=== PATIENT | female | born 1950 | race Caucasian/White ===

== ENCOUNTER 2019-12-03 21:31 | Inpatient (IN) | payer MEDICARE, OTHER ==
[~2019-12-03] VITALS: Ht 162.6 cm; Wt 139.3 kg
[~2019-12-03 21:31] MED LIST: ALTACE10 M1 PO; ENBREL 25 MG KI25 M1; LEVOXYL75 MCG PO; LIPITOR40 MG PO; LO-DOSE ASPIRIN81 M1 PO; METHOTREXATE 22.5 M1 PO; NIGHTTIME SLEEP50 MG PO; NITROSTAT0.4 MG SUBLING; PROZAC20 MG PO; TOPROL XL25 MG PO
[2019-12-03 22:23] VITALS: BP 197/87
[2019-12-03] MEDS ORDERED: TRAZODONE 150150 M1 PO (22:25)
[2019-12-03] MEDS ORDERED: LEVO-T100 MCG PO (22:26)
[2019-12-04 00:03] LABS: ABSOLUTE BASOPHILS 0.1 thou/uL (0.0-0.2); ABSOLUTE EOSINOPHILS 0.1 thou/uL (0.0-0.7); ABSOLUTE LYMPHOCYTES 1.2 thou/uL (0.8-5.3); ABSOLUTE MONOCYTES 0.5 thou/uL (0.0-1.2); EOSINOPHILS 2.7 %; HEMATOCRIT 35.8 % (37.0-47.0); HEMOGLOBIN 11.2 gm/dL (12.0-15.0); LYMPHOCYTES 25.2 %; MCHC 31.3 g/dL (28.0-37.0); MCV 83.2 fL (80.0-100.0); MONOCYTES 10.4 %; MPV 7.9 fl. (7.2-11.1); NUCLEATED RBCS 0 /100WBC; PLATELET COUNT* 298 thou/uL (150-400); POLYS 59.7 %
[2019-12-04 00:14] LABS: CALCIUM 8.4 mg/dL (8.5-10.1); CREATININE 1.1 mg/dL (0.6-1.3); POTASSIUM 3.4 mmol/L (3.5-5.1)
[2019-12-04 00:16] LABS: PROTIME 10.4 Seconds (9.20-11.50)
[2019-12-04 00:23] LABS: ALBUMIN 2.9 g/dL (3.4-5.0); TOTAL BILIRUBIN 1.3 mg/dL (<0.1-1.0); TOTAL PROTEIN 6.4 g/dL (6.4-8.2)
[2019-12-04 00:51] LABS: URINE BILIRUBIN NEGATIVE (Negative); URINE BLOOD NEGATIVE (Negative); URINE CLARITY CLEAR; URINE COLOR DARK YELLOW; URINE GLUCOSE-RANDOM NEGATIVE (Negative); URINE KETONES NEGATIVE (Negative); URINE LEUKOCYTES-REFLEX TRACE (Negative); URINE NITRITE-REFLEX NEGATIVE (Negative); URINE PROTEIN NEGATIVE (Negative); URINE SPECIFIC GRAVITY 1.025 (1.005-1.030)
[2019-12-04 01:21] LABS: CALCIUM OXALATE >10 Many /LPF (None Seen); CASTS None Seen /LPF (None Seen); MUCUS 0-3 Light strn/LPF (None Seen); SQUAMOUS >10 Many /LPF (0-3)
[2019-12-04 01:22] LABS: BACTERIA-REFLEX 1-9 Few /HPF (None Seen); URINE RBC 0-2 Rare /HPF (0-2); URINE WBC-REFLEX 0-5 Rare /HPF (0-5)
[2019-12-04 01:28] LABS: ANISOCYTOSIS 2+; PLATELET ESTIMATE ADEQUATE; POLYCHROMASIA 1+
[2019-12-04 06:00] VITALS: BP 177/69
--- NOTE | 2019-12-04 09:11 | EKG ---
[place] [address] ELECTROCARDIOGRAM REPORT Name: CAGIRMA Chloe Room: [place] [address] ADM IN ..#: [id number] Admission: 12/04/19 Attend Phys: Cat cadena Sa Discharge: Date of : 50 Date of Service: 12/03/192220 Report #: [id number] THIS REPORT FOR: //name// 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1950 Requested By: Libertad Abdalla Order Number: [id number] MD: Meño Hernandez Measurements Intervals [place] Rate: 65 P: 27 MT: 156 QRS: 39 QRSD: 75 T: 64 QT: 461 QTc: 480 Interpretive Statements Sinus rhythm septal q waves Borderline prolonged QT interval No previous ECG available for comparison Electronically Signed On 12-04-2019 9:11:02 CDT by Meño Hernandez [email or web address] <ELECTRONICALLY SIGNED> By: Meño Hernandez MD, [facility] 12/04/1911 20 20 Meño Hernandez MD, [facility] /EPI
--- NOTE | 2019-12-04 09:15 | EKG ---
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 : 1950 Requested By: Libertad Abdalla Order Number: [id number] MD: Meño Hernandez Measurements Intervals [place] Rate: 66 P: 60 MS: 132 QRS: 48 QRSD: 76 T: 66 QT: 490 QTc: 514 Interpretive Statements Sinus rhythm Supraventricular bigeminy Prolonged QT interval Baseline wander in lead(s) I,III,aVL,V1,V2 Electronically Signed On 12-04-2019 9:14:21 CDT by Meño Hernandez [email or web address] <ELECTRONICALLY SIGNED> By: Meño Hernandez MD, [facility] 12/04/19 0914 0639 Meño Hernandez MD, [facility] /EPI
--- NOTE | 2019-12-04 09:30 | NUR ---
PT UP EATING BREAKFAST. NO COMPLAINTS AT THIS TIME.
[2019-12-04 10:00] VITALS: BP 168/65
--- NOTE | 2019-12-04 13:29 | NUR ---
PT GIVEN LUNCH TRAY. SITTING UP TO SIDE OF BED. DENIES ANY OTHER NEEDS.
[2019-12-04 14:00] VITALS: BP 145/70
[2019-12-04 16:46] VITALS: BP 157/67
[2019-12-04 17:07] VITALS: BP 150/48
[2019-12-04] MEDS ORDERED: VITAMIN D3 COM1 EACH PO (17:10)
[2019-12-04] MEDS ORDERED: FOLIC ACID0.8 M1 PO (17:11)
--- NOTE | 2019-12-04 18:26 | NUR ---
PT ADMITTED FROM ER. PT IS AOX4. TRACING SR ON SEW ON OPERATOR. ON 2 L NC. SOB WITH EXERTION. COVID RESULT PENDING/ ON ENHANCED ISOLATION PRECAUTION. FOOD PROVIDED. IV ANTIBIOTIC HANGED. VSS. NO COMPLAINT. CALL LIGHT WITHIN REACH. WILL CONTINUE TO MONITOR PT
[2019-12-04 20:00] VITALS: BP 96/78
[2019-12-05] VITALS: BP 150/64
--- NOTE | 2019-12-05 10:51 | 2DMMODE ---
[place] [address] 2 D/M-MODE ECHOCARDIOGRAM Name: GIRMA PENALOZA Chloe Room: [address] IN M.R.#: [id number] Admission: 12/04/19 Attend Phys: Cat cadena Sa Discharge: Date of : 50 Date of Service: 12/05/19 1050 Report #: [id number] THIS REPORT FOR: cc: Serafin Vital,Serafin Barajas,Meño Otto MD [facility] ~ APPROVED REPORT Study performed: 12/05/2019 09:02:50 EXAM: Comprehensive 2D, Doppler, and color-flow Echocardiogram Patient Location: In-Patient BSA: 2.33 HR: 160 bpm BP: 168/65 mmHg Other Information Study Quality: Fair Technically limited study due to inability to position patient. Indications Pulmonary Edema 2D Dimensions IVSd: 11.04 (7-11mm) LVOT Diam: 20.31 (18-24mm) LVDd: 39.68 mm PWd: 11.67 (7-11mm) Ascending Ao: 31.54 (22-36mm) LVDs: 31.16 (25-40mm) Aortic Root: 31.60 mm Volumes Left Atrial Volume (Systole) LA ESV Index: 24.80 mL/m2 Aortic Valve AoV Peak Eber.: 1.69 m/s AO Peak Gr.: 11.38 mmHg LVOT Max P.68 mmHg AO Mean Gr.: 6.72 mmHg LVOT Mean P.49 mmHg LVOT Max V: 0.82 m/s AO V2 VTI: 20.77 cm LVOT Mean V: 0.58 m/s COLTEN (VTI): 2.36 cm2 LVOT V1 VTI: 15.13 [place] [address] 2 D/M-MODE ECHOCARDIOGRAM Name: GIRMA PENALOZA Room: [address] IN ..#: [id number] Admission: 12/04/19 Attend Phys: Cat cadena Sa Discharge: Date of : 50 Date of Service: 12/05/19 1050 Report #: [id number] Mitral Valve E/A Ratio: 1.82 MV Decel. Time: 140.31 ms MV E Max Eber.: 0.95 m/s MV PHT: 40.69 ms MVA (PHT): 5.41 cm2 TDI E/Lateral E': 6.79 E/Medial E': 4.13 Medial E' Eber.: 0.23 m/s Lateral E' Eber.: 0.14 m/s Pulmonary Valve PV Peak Eber.: 1.39 m/s PV Peak Gr.: 7.77 mmHg Tricuspid Valve RAP Estimate: 20.00 mmHg TR Peak Gr.: 38.75 mmHg RVSP: 58.75 mmHg PA Pressure: 58.75 mmHg Left Ventricle The left ventricle is normal size. endocardium not well visualized making segmental wall motion analysis difficult There is normal left ventricular wall thickness. Left ventricular systolic function is hyperdynamic. LVEF is >70%. Right Ventricle The right ventricle is normal size. The right ventricular systolic function is normal. Atria The left atrium size is normal. The right atrium size is normal. Aortic Valve The aortic valve is not well visualized. No aortic regurgitation is present. There is no aortic valvular stenosis. Mitral Valve The mitral valve is normal in structure. There is no mitral valve regurgitation noted. No evidence of mitral valve stenosis. Tricuspid Valve The tricuspid valve is normal in structure. Trace [place] [address] 2 D/M-MODE ECHOCARDIOGRAM Name: GIRMA PENALOZA Chloe Room: [address] IN [facility]#: [id number] Admission: 12/04/19 Attend Phys: Cat cadena Sa Discharge: Date of : 50 Date of Service: 12/05/19 1050 Report #: [id number] Pulmonic Valve Pulmonic valve is not well visualized. There is no pulmonic valvular regurgitation. Great Vessels The aortic root is normal in size. IVC is dilated. Pericardium There is no pericardial effusion. <Conclusion> Left ventricular systolic function is hyperdynamic. <ELECTRONICALLY SIGNED> By: Meño Hernandez MD, FACC 12/05/19 [phone] Meño Hernandez MD, FACC /INF
[2019-12-05 12:00] VITALS: BP 139/64
--- NOTE | 2019-12-05 15:09 | NUR ---
Pt out of the room when CM went to assess, will f/u later
[2019-12-05 16:00] VITALS: BP 141/82
--- NOTE | 2019-12-05 18:42 | NUR ---
PATIENT RESTING IN BED. UP AD MARÍA IN ROOM. BARIUM, SWALLOW EVAL TODAY. 2L PER NASAL CANULA. HOURLY ROUNDING COMPLETD FOR PATIENT SAFETY.
--- NOTE | 2019-12-05 22:35 | NUR ---
[place]UM[place] [address]. PT IS ALERT AND ORIENTED. VSS. PERRLA. NO COMPLAINTS OF PAIN. PT IS IN SINUS RYTHM ON THE TELEMETRY. PT IS RESTING COMFORTABLY IN BED. WILL CONTINUE TO MONITOR PT.
[2019-12-06] VITALS: BP 153/65
[2019-12-06 04:00] VITALS: BP 150/70
[2019-12-06 06:06] LABS: HEMATOCRIT 34.7 % (37.0-47.0); MCH 26.3 pg (26.0-34.0); MCHC 31.7 g/dL (28.0-37.0); MPV 8.5 fl. (7.2-11.1); RBC 4.18 mil/uL (4.20-5.00); RDW-CV 21.1 % (10.5-14.5)
[2019-12-06 06:32] LABS: CALCIUM 8.5 mg/dL (8.5-10.1); CREATININE 0.8 mg/dL (0.6-1.3); MAGNESIUM 2.1 mg/dL (1.8-2.4); POTASSIUM 3.4 mmol/L (3.5-5.1)
--- NOTE | 2019-12-06 09:52 | NUR ---
Pt is A&O. Resides at home alone, [facility]. Limited support sx, says that she has a grandson, 2 stepdtrs and a neighbor that are available as needed. Pt uses a cane for mobility. Has a neb, no home o2, will need an ex ox at in. Covid negative. No hx of HH or SNF. Pt wants HH at in and wants to use [facility], faxed initial referral, unsure when Pt will be medically stable to in. DC orders will need to be faxed to [email or web address] at in f:[phone] p:[phone].
[2019-12-06 09:58] VITALS: BP 150/70
[2019-12-06 13:09] VITALS: BP 160/66
[2019-12-06 16:00] VITALS: BP 172/70
--- NOTE | 2019-12-06 18:58 | NUR ---
PATINET RESTING IN BED. UP AD MARÍA IN ROOM. VSS AND PATINET IN NOAPPARNET SIGNS OF DISTRSS. HOURLY ROUDNING COMPETE FOR PATIENT SAFGETY
[2019-12-06 20:00] VITALS: BP 163/78
[2019-12-06 23:02] LABS: URINE BILIRUBIN NEGATIVE (Negative); URINE BLOOD NEGATIVE (Negative); URINE CLARITY CLEAR; URINE COLOR YELLOW; URINE GLUCOSE-RANDOM NEGATIVE (Negative); URINE KETONES NEGATIVE (Negative); URINE LEUKOCYTES-REFLEX NEGATIVE (Negative); URINE NITRITE-REFLEX NEGATIVE (Negative); URINE PROTEIN NEGATIVE (Negative); URINE SPECIFIC GRAVITY 1.015 (1.005-1.030)
[2019-12-07] VITALS: BP 170/84
[2019-12-07 04:00] VITALS: BP 160/60
--- NOTE | 2019-12-07 05:53 | NUR ---
Shift uneventful. Pt is aox4, running SA w/ PVCs on telemetry, respirations are even and unlabored on room air. Pt is medically stable at this time.
[2019-12-07 12:00] VITALS: BP 155/65
[2019-12-07 16:00] VITALS: BP 150/60
--- NOTE | 2019-12-07 16:47 | NUR ---
PATINET RESTING IN BED. UP AD MARÍA IN ROOM. VSS AND PATINET IN NO APPARNET SIGNS OF DISTRESS A THIS TIME. SHE HAS RECEIVED MG CITRATE WITH NO BOWEL MOVEMENT OF YET. KENNA MORATAYA COMPELTED FOR PATIENT SAFETY
[2019-12-07 20:00] VITALS: BP 150/71
[2019-12-07 20:45] VITALS: BP 143/78
[2019-12-08 05:18] LABS: HEMATOCRIT 36.2 % (37.0-47.0); HEMOGLOBIN 11.3 gm/dL (12.0-15.0); MCH 25.9 pg (26.0-34.0); MCHC 31.1 g/dL (28.0-37.0); MCV 83.1 fL (80.0-100.0); MPV 8.4 fl. (7.2-11.1); RBC 4.36 mil/uL (4.20-5.00); RDW-CV 20.5 % (10.5-14.5); WBC 7.4 thou/uL (4.0-11.0)
--- NOTE | 2019-12-08 05:28 | NUR ---
PT TRANSFERED FROM [facility] AT 2039. A&O X 4, VSS ON RA. DENIED PAIN. PT CONCERNED ABOUT CONSTIPATION, PRUNE JUICE GIVEN PER PT REQUEST. BREATING TREATMENT Q4H. NO OTHER CONCERNS AT THIS TIME. WILL CONINUE TO MONITOR.
[2019-12-08 05:39] LABS: CALCIUM 8.2 mg/dL (8.5-10.1); CREATININE 0.9 mg/dL (0.6-1.3); POTASSIUM 4.7 mmol/L (3.5-5.1); TOTAL BILIRUBIN 0.6 mg/dL (<0.1-1.0); TOTAL PROTEIN 6.7 g/dL (6.4-8.2)
[2019-12-08 07:30] VITALS: BP 155/69
[2019-12-08 16:21] VITALS: BP 132/75
--- NOTE | 2019-12-08 17:10 | NUR ---
ASSUMED CARE OF PATIENT AT APPROX 0730. ALERT AND ORIENTED X4. ASSESSMENT COMPLETED AND CHARTED. VSS ON ROOM AIR. COMPLAINT OF CONSTIPATION ADDRESSED WITH MIRALAX BID. ANTIBIOTICS STARTED AND INFUSING ORDERED. PATIENT UP AD MARÍA AND WALKING THE UNIT TODAY. NO OTHER COMPLAINTS THIS SHIFT. CALL LIGHT WITHIN REACH. HOURLY ROUNDS COMPLETED. WILL CONTINUE WITH PLAN OF CARE.
[2019-12-08 20:00] VITALS: BP 155/77
[2019-12-09] VITALS: BP 159/72
[2019-12-09 03:57] LABS: HEMOGLOBIN 11.8 gm/dL (12.0-15.0); MCH 25.7 pg (26.0-34.0); MPV 8.4 fl. (7.2-11.1); RBC 4.59 mil/uL (4.20-5.00); RDW-CV 20.5 % (10.5-14.5); WBC 7.9 thou/uL (4.0-11.0)
[2019-12-09 04:03] LABS: CALCIUM 8.4 mg/dL (8.5-10.1); MAGNESIUM 2.9 mg/dL (1.8-2.4); POTASSIUM 4.7 mmol/L (3.5-5.1); TOTAL BILIRUBIN 0.6 mg/dL (<0.1-1.0); TOTAL PROTEIN 6.6 g/dL (6.4-8.2)
[2019-12-09 04:30] LABS: % SATURATION 6 % (20-39); IRON 20 ug/dL (50-175)
--- NOTE | 2019-12-09 05:08 | NUR ---
Alert and oriented x 4. Vitals are stable,roomair sat 92-94%. She is up independently in the room. She did have a large BM at 2330. She is going tohave an EGD today and will have nothing by mouth starting at 0900. Shehas slept well.
[2019-12-09 08:15] VITALS: BP 156/85
--- NOTE | 2019-12-09 15:26 | NUR ---
DPOA completed with Pt today, copy placed on Pt's chart.
--- NOTE | 2019-12-09 16:30 | NUR ---
HAVING LATE EGD TODAY. POSSIBLE DISCHARGE TOMORROW. NOTIFIED [facility], PT.IS CURRENT WITH [facility]. WILL UPDATE HER TOMRROW.
--- NOTE | 2019-12-09 18:38 | NUR ---
PT REMAINED AOX4 THIS SHIFT. NPO AT 0900 FOR EGD. EGD DONE S COMPLICATIONS, ADVANCED TO FLD. TOLERATED WELL. RECEIVED IV ABT AND TOLERATED WELL. PT ON ROOM AIR AND MAINTAINS O2 SATS. NO C/O PAIN, REFUSING MIRALAX D/T BM 12/07. STARTED ON DIFLUCAN, WILL BE NPO AT [place] PENDING GASTRIC SCAN 12/09.
[2019-12-09 19:40] VITALS: BP 145/76
[2019-12-10] VITALS: BP 128/60
[2019-12-10 03:37] VITALS: BP 136/56
--- NOTE | 2019-12-10 04:36 | NUR ---
PT A&OX4, ON ROOM AIR, PT UP AD MARÍA, VSS. PT NPO SINCE MIDNIGHT FOR 12/09 GASTRIC EMPTYING PROCEDURE. NO COMPLAINTS THIS SHIFT. WILL CONTINUE WITH PLAN OF CARE.
[2019-12-10 07:24] VITALS: BP 147/78
--- NOTE | 2019-12-10 11:55 | NUR ---
PT DISCHARGED HOME WITH . TRANSPORTED VIA WHEELCHAIR WITH ALL BELONGINGS TO PRIVATE VEHICLE. DISCHARGE INSTRUCTIONS GIVEN, PRESCRIPTIONS GIVEN TO PATIENT. QUESTIONS ANSWERED AND IV REMOVED. PATIENT STABLE AT DISCHARGE AND VOICED NO CONCERNS
--- NOTE | 2019-12-10 14:03 | NUR ---
PT.NOT DISCHARGING UNTIL TOMORROW PER . UPDATED [facility] WITH [facility].
--- NOTE | 2019-12-10 14:49 | NUR ---
Nutrition: Pt seen for high BMI. Wt: 300#. Full liquid diet ordered. PMHx: COPD, RA, HTN, OBE, GERD. Had GET today, awaiting diet advancement. Pt stated she ius hungry and wanted solid foods. RD did fetch pt a diet Pepsi at her request. Likely discharge tomorrow. Albumin 3. We discussed some tips on lowering salt intake. All questions answered today. Assess at mild nutrition risk.
[2019-12-10 16:00] VITALS: BP 136/72
--- NOTE | 2019-12-10 17:09 | NUR ---
PT ADMITTED TO ROOM 114 FROM PACU S/P RTKR. PT STABLE AND AOx4. PT C/O NO PAIN P SURGERY. PT ON 2L O2 TO MAINTAIN O2 SATS. RECEIVING IVF AND TOELRATING WELL. ADVANCED TO REG DIET. SURGICAL DRSG TO L KNEE CDI.
--- NOTE | 2019-12-10 17:18 | NUR ---
PT HAD GET SCAN TODAY, TOLERATED WELL. ADVANCED TO HEART HEALTHY DIET. RECEIVING IV ANTIBIOTICS, NO C/O PAIN THIS SHIFT. UAL IN ROOM AND STABLE ON RA.
[2019-12-10 19:30] VITALS: BP 130/84
--- NOTE | 2019-12-11 04:17 | NUR ---
PT A&O, ON ROOM AIR, UP AD MARÍA, VSS, NO COMPLAINTS THIS SHIFT, PT SLEEPING WELL. WILL CONTINUE WITH PLAN OF CARE.
[2019-12-11 07:25] VITALS: BP 141/89
[2019-12-11] MEDS ORDERED: BENTYL 10 MG CA10 MG PO (08:58)
[2019-12-11] MEDS ORDERED: PULMICORT0.5 MG/2 M NEB (08:58)
[2019-12-11] MEDS ORDERED: LEVAQUIN 500 M500 M3 PO (08:58)
[2019-12-11] MEDS ORDERED: IPRAT-ALBUT 0.5-3 ML INH (08:58)
[2019-12-11] MEDS ORDERED: FLUCONAZOLE 10100 MG PO (08:58)
[2019-12-11] MEDS ORDERED: PREDNISONE 10 M10 MG PO (08:58)
[2019-12-11] MEDS ORDERED: PEPCID20 MG PO (08:59)
--- NOTE | 2019-12-11 09:41 | NUR ---
PT.TO BE DISCHARGED TODAY WITH HOME HEALTH. CURRENT WITH [facility]. FAXED DISCHARGE SUMMARY TO THEM AND NOTIFIED [facility]. DISCUSSED WITH PT.
--- NOTE | 2019-12-11 10:54 | NUR ---
PT GIVEN DISCHARGE INFORMATION,CARE NOTES, AND PRESCRIPTIONS. IV REMOVED. PT BELONGINGS GATHERED. PT DENIED ANY FURTHER QUESTIONS OR CONCERNS. FALL RISK PRECAUTIONS IN PLACE. HOURLY ROUNDING COMPLETED. PT LEFT VIA WHEELCHAIR WITH NURSING STAFF TO HOME WITH HOME HEALTH.
--- NOTE | 2019-12-16 11:06 | CON ---
[address] [address] CONSULTATION Name: GIRMA PENALOZA Room: [address] IN M.R.#: [id number] Admission: 12/04/19 Attend Phys: Cat Maldonado Discharge: 12/11/19 Date of : 50 Report #: [id number] THIS REPORT FOR: //name// cc: Serafin Vital James V. DO ~ THIS REPORT FOR: //name// CC: Cat Vital DO DATE OF SERVICE: 12/08/2019 REFERRING PHYSICIAN: Cat Ayala MD. REASON FOR CONSULTATION: Dysphagia. IMPRESSION: 1. Intermittent solid dysphagia with abnormal barium swallow suggestive of a mid esophageal stricture -- evaluate for etiology of the same. 2. History of remote gastric bypass with Cristino shunt and cholecystectomy. 3. Chronic rheumatoid arthritis requiring chronic medications for the same, but no nonsteroidals. RECOMMENDATIONS: 1. Due to her complaints of solid dysphagia with an abnormal appearing barium swallow, we will proceed with upper endoscopy tomorrow afternoon. I have discussed the plans with the patient as well and she is agreeable to the same. 2. Further recommendation will be made thereafter. HISTORY OF PRESENT ILLNESS: The patient is a very pleasant 69-year-old white female who was actually admitted to the hospital because of problems with shortness of breath and cough and progressive fatigue over several days. While this subsequently got better, she then started complaining that she was having some issues with swallowing. She has had some problems with feeling as if the food gets stuck and then it will come right back up. She is wondering if some of this is contributing to some of her issues. She denies any complaints of any problems with liquids. This is all with solids. It feels like it goes only certain ways down and she will feel this discomfort and pressure at the level of the cervical area. She does have some issues with reflux, but nothing severe. She has undergone previous gastric bypass in the remote past. ALLERGIES: None. CURRENT MEDICATIONS AT HOME: Include Enbrel, methotrexate, Toprol, Lipitor, [place] [address] CONSULTATION Name: PENALOZAGIRMA Room: [address] IN [facility].#: [id number] Admission: 12/04/19 Attend Phys: Cat Maldonado Discharge: 12/11/19 Date of : 50 Report #: [id number] Prozac, low dose aspirin, Desyrel and levothyroxine. PAST MEDICAL AND SURGICAL HISTORY: Remarkable for underlying hypertension, hyperlipidemia, some anxiety and depression. She has chronic rheumatoid arthritis. She has issues with sleeping as well. She has had previous hernia repair, tubal ligation, ovarian cyst removal, Cristino shunt, cholecystectomy, and tonsillectomy. SOCIAL HISTORY: The patient does not smoke or drink. FAMILY HISTORY: Negative. PHYSICAL EXAMINATION: GENERAL: A 69-year-old white female who is awake and alert. CARDIOPULMONARY: Revealed a regular rate and rhythm. LUNGS: Clear. ABDOMEN: Soft and not tender. No rebound or guarding noted. She underwent a CT scan of the chest on 12/04/2019 which revealed no evidence for pulmonary emboli. There was some mild interlobular septal thickening suggestive of edema versus air trapping. There was extensive coronary artery calcification. Barium swallow performed on the was reviewed and was read out as normal; however, it appeared to me that in the mid esophagus, there appeared to be some narrowing and it was unclear why this was. A radioopaque capsule was not performed during the procedure. LABORATORY DATA: From 12/08/2019 revealed a white count of 7.4, hemoglobin 11.3, platelet count 243,000. Her MCV is 83.1, RDW is 20.5. Her chemistry tests from the revealed sodium 136, potassium 4.7, chloride 100, bicarbonate is 35, BUN 16, creatinine 0.9, total bilirubin 0.6, alkaline phosphatase 74, AST 42, ALT 43, albumin is 3.0. DISCUSSION: At the present time, the patient has some problem with dysphagia. We will proceed with upper endoscopy tomorrow and make further recommendations to her thereafter. I have discussed the plans with the patient as well and she is agreeable to the same. <ELECTRONICALLY SIGNED> By: Maged Granger DO 12/16/19 1106 1138 [id number] Granger DO /nt
== END 2019-12-11 10:55 | disposition home health service (06) | DRG 291 ==
LOC: M.ERS 21:31 → M.TBA-ER 12-04 03:19 → M.2W 12-04 16:52 → M.ORTHSURG 12-07 21:08
PROVIDERS: Emergency Medicine; Internal Medicine; Internal Medicine Gastroenterology; ADMIT Family Medicine; ATTEND Family Medicine
PROC: 0D758ZZ Dilation of Esophagus, Via Natural or Artificial Opening Endoscopic (ICD-10-PCS; principal; 2019-12-10)
DX: I11.0 Hypertensive heart disease with heart failure (principal); J96.01 Acute respiratory failure with hypoxia; J18.9 Pneumonia, unspecified organism; J44.1 Chronic obstructive pulmonary disease with (acute) exacerbation; B37.81 Candidal esophagitis; J44.0 Chronic obstructive pulmonary disease with (acute) lower respiratory infection; I50.33 Acute on chronic diastolic (congestive) heart failure; M06.9 Rheumatoid arthritis, unspecified; K21.9 Gastro-esophageal reflux disease without esophagitis; M81.0 Age-related osteoporosis without current pathological fracture; K31.84 Gastroparesis; K22.9 Disease of esophagus, unspecified; K22.2 Esophageal obstruction; R13.14 Dysphagia, pharyngoesophageal phase; E03.9 Hypothyroidism, unspecified; F17.210 Nicotine dependence, cigarettes, uncomplicated; I73.00 Raynaud's syndrome without gangrene; Z20.828 Contact with and (suspected) exposure to other viral communicable diseases; Z90.49 Acquired absence of other specified parts of digestive tract; Z79.82 Long term (current) use of aspirin; Z79.899 Other long term (current) drug therapy; Z98.84 Bariatric surgery status